=== PATIENT | male | born 1965 | race Caucasian/White ===

== ENCOUNTER 2017-11-13 19:55 | Emergency (ER) | payer OTHER ==
[2017-11-13 20:25] VITALS: BP 146/96
--- NOTE | 2017-11-13 20:47 | UC ---
Complaint Male HPI - HPI Summary HPI Summary: Patient states "held my urine too long and had an accident" he describes this as urinating on himself. He states that this occurred as he was trying to exit a store. He states that upon arriving home he noted blood and a clot inside his pain gets. He admits that at the time he felt like he couldn't hold his urine he was experiencing pain in both sides of his back that seemed to resolve with the incontinence. He states that since arriving here he passed a couple of clots while providing his urine sample. He also admits to "dripping blood from my penis". Patient denies any history of similar signs or symptoms and he denies any history of hematuria and renal stones as well as UTI. He does report that last evening he felt like his abdomen was bloated and that his lower abdomen feels a little bloated at this time. No prior issues of bruising or bleeding. Patient denies any blood thinners or aspirin use. - History of Current Complaint Chief Complaint: UCGU Stated Complaint: URINARY COMPLAINT Time Seen by Provider: 11/13/17 20:40 Hx Obtained From: Patient Onset/Duration: Sudden Onset Pain Intensity: 0 Associated Signs And Symptoms: Positive: Hematuria. Negative: Fever, Blood in Stool, Rectal Pain, Nausea, Vomiting(# Of Episodes =), Penile Swelling - Allergies/Home Medications Allergies/Adverse Reactions: Allergies Allergy/AdvReac Type Severity Reaction Status Date / Time No Known Allergies Allergy Verified 11/13/17 20:23 Home Medications: Home Medications Cholecalciferol TAB* [Vitamin D TAB*] 1,000 unit PO DAILY 11/13/17 [History Confirmed 11/13/17] PMH/Surg Hx/FS Hx/Imm Hx Cardiovascular History: Hypertension - Surgical History Surgical History: Yes Surgery Procedure, Year, and Place: KNEE ARTHROSCOPY- TEENAGER. NERVE BLOCK- BACK - Family History Known Family History: Positive: Hypertension, Respiratory Disease - Social History Occupation: Employed Full-time Lives: With Family Alcohol Use: Occasionally Substance Use Type: None Smoking Status (MU): Never Smoked Tobacco - Immunization History Vaccination Up to Date: Yes Review of Systems Constitutional: Negative Skin: Negative Eyes: Negative ENT: Negative Respiratory: Negative Cardiovascular: Negative Gastrointestinal: Negative Genitourinary: Hematuria Motor: Negative Neurovascular: Negative Musculoskeletal: Negative Neurological: Negative Psychological: Negative Is Patient Immunocompromised?: No All Other Systems Reviewed And Are Negative: Yes Physical Exam Triage Information Reviewed: Yes Appearance: Well-Appearing Vital Signs: Initial Vital Signs Temp 98.5 F 11/13/17 20:20 Pulse 81 11/13/17 20:20 Resp 17 11/13/17 20:20 BP 146/96 11/13/17 20:20 Pulse Ox 100 11/13/17 20:20 Eye Exam: Normal ENT: Positive: Normal ENT inspection Neck: Positive: Supple, Nontender, No Lymphadenopathy Respiratory: Positive: Lungs clear, Normal breath sounds Cardiovascular: Positive: RRR, No Murmur Abdomen Description: Positive: Nontender, No Organomegaly, Soft. Negative: CVA Tenderness (R), CVA Tenderness (L), Distended, Guarding Bowel Sounds: Positive: Present Male Genital Exam: Positive: Other - Strong femoral pulses no inguinal adenopathy. Testicles are down without swelling or tenderness. Inguinal canals are patent. A scant amount of blood is trickling from the urethral meatus at time of exam but no evidence of lesions or injury. Musculoskeletal: Positive: ROM Intact Neurological: Positive: Alert Psychological: Positive: Age Appropriate Behavior Skin Exam: Normal Complaint Male Course/Dx - Course Course Of Treatment: Patient's history is concerning in that he has spontaneous hematuria, incontinence and the passage of clots. Urine dip here was positive for blood only. He has no history of injury to account for this and it is not consistent with renal colic. On exam he has some scant active bleeding from his urethral meatus. The history may even imply that he was experiencing some urinary retention and perhaps he spontaneously drained once a clot gave way. This patient requires higher level of care to determine the source of his bleeding and passage of clots along with the incontinence. He agrees to emergency room transfer and will go directly to the [facility] from here. Report called to Jen abel at [facility]. advised of incontinence, hematuir and clots in urine and coming via private car. - Differential Dx/Diagnosis Provider Diagnoses: Incontinenece, hematuria with clots, bleeding from urethra Discharge - Sign-Out/Discharge Documenting (check all that apply): Discharge/Admit/Transfer - Discharge Plan Condition: Stable Disposition: TRANS HIGHER LVL OF CARE FAC Referrals: No Primary Care Phys,NOPCP [Primary Care Provider] - Additional Instructions: GO DIRECTLY TO THE [facility] FROM HERE DISCUSSED - Billing Disposition and Condition Condition: STABLE Disposition: Trans Higher Lvl of Care Fac
== END 2017-11-13 20:55 | disposition short-term general hospital (02) ==
LOC: UCCORT 19:55
DX: R32 Unspecified urinary incontinence (principal); N36.8 Other specified disorders of urethra; R31.9 Hematuria, unspecified; I10 Essential (primary) hypertension
CPT/HCPCS: 81003; 99212; G0463

== ENCOUNTER 2018-12-26 09:39 | Emergency (ER) | payer BC, OTHER ==
[2018-12-26 09:59] VITALS: BP 152/83
--- NOTE | 2018-12-26 10:30 | UC ---
Shoulder Pain HPI - HPI Summary HPI Summary: 53-year-old male who was working on a deck at home when he accidentally stepped in a hole and fell onto his outstretched palm injuring his right shoulder. When he stood up he felt like it was dislocated but then he moved his arm and he felt it pop back into place. Today he has some continued pain to the posterior right shoulder. He denies any neck pain and did not hit his head. - History of Current Complaint Chief Complaint: UCUpperExtremity Stated Complaint: RIGHT SHOULDER INJURY Time Seen by Provider: 12/26/18 10:00 Hx Obtained From: Patient Onset/Duration: Sudden Onset Timing: Constant Severity Initially: Moderate Severity Currently: Mild Pain Intensity: 4 Aggravating Factor(s): Abduction Alleviating Factor(s): Rest Associated Signs And Symptoms: Positive: Negative - Allergies/Home Medications Allergies/Adverse Reactions: Allergies Allergy/AdvReac Type Severity Reaction Status Date / Time No Known Allergies Allergy Verified 12/26/18 09:58 PMH/Surg Hx/FS Hx/Imm Hx Previously Healthy: Yes Cardiovascular History: Hypertension Respiratory History: Asthma - Surgical History Surgical History: Yes Surgery Procedure, Year, and Place: KNEE ARTHROSCOPY- TEENAGER. NERVE BLOCK- BACK - Family History Known Family History: Positive: Hypertension, Respiratory Disease - Social History Alcohol Use: Occasionally Substance Use Type: None Smoking Status (MU): Never Smoked Tobacco - Immunization History Vaccination Up to Date: Yes Review of Systems All Other Systems Reviewed And Are Negative: Yes Skin: Positive: Negative Respiratory: Positive: Negative Motor: Positive: Negative, Decreased ROM Musculoskeletal: Positive: Negative Neurological: Positive: Negative Is Patient Immunocompromised?: No Physical Exam Triage Information Reviewed: Yes Appearance: Well-Appearing, No Pain Distress, Well-Nourished Vital Signs: Initial Vital Signs Temp 97.9 F 12/26/18 09:56 Pulse 78 12/26/18 09:56 Resp 18 12/26/18 09:56 BP 152/83 12/26/18 09:56 Pulse Ox 97 12/26/18 09:56 Vital Signs Reviewed: Yes Neck: Positive: Supple, Nontender, No Lymphadenopathy Respiratory: Positive: Lungs clear, Normal breath sounds, No respiratory distress, No accessory muscle use Cardiovascular: Positive: RRR, No Murmur, Pulses Normal, Brisk Capillary Refill Musculoskeletal: Positive: Strength Intact, ROM Intact, Other: - Mild tenderness on palpation posterior right shoulder, no erythema, bruising, deformity or swelling is noted. The peripheral pulses neuro sensation and capillary refill. Good arm strength against resistance. Patient is able to lift his right arm laterally to 90 angle with minimal discomfort. Negative arm drop Neurological Exam: Normal Psychological Exam: Normal Skin Exam: Normal Shoulder Course/Dx - Course Course Of Treatment: Shoulder x-ray:FINDINGS: BONE DENSITY: Normal. BONES: There is no displaced fracture. JOINTS: There is mild osteoarthritis of the a.c. and glenohumeral joints. ALIGNMENT: There is no dislocation. SOFT TISSUES: Unremarkable. OTHER FINDINGS: None. IMPRESSION: OSTEOARTHRITIS. NO ACUTE OSSEOUS INJURY. IF SYMPTOMS PERSIST, RECOMMEND REPEAT IMAGING. - Differential Dx/Diagnosis Provider Diagnosis: Sprain of right shoulder Discharge - Sign-Out/Discharge Documenting (check all that apply): Patient Departure All imaging exams completed and their final reports reviewed: Yes - Discharge Plan Condition: Fair Disposition: HOME Patient Education Materials: Shoulder Sprain (ED) Referrals: Joe Feliciano MD [Primary Care Provider] - Additional Instructions: Apply ice to the sore area, Tylenol every 4 hours may alternate with Motrin every 8 hours for pain. Definite follow-up with the orthopedist if no improvement in 3 or 4 days. - Billing Disposition and Condition Condition: FAIR Disposition: Home
== END 2018-12-26 10:38 | disposition home or self-care (01) ==
LOC: UCCORT 09:39
DX: S43.401A Unspecified sprain of right shoulder joint, initial encounter (principal); W17.2XXA Fall into hole, initial encounter; Y93.89 Activity, other specified; Y92.007 Garden or yard of unspecified non-institutional (private) residence as the place of occurrence of the external cause; I10 Essential (primary) hypertension
CPT/HCPCS: 99211; G0463

== ENCOUNTER 2018-12-28 13:40 | Emergency (ER) | payer BC ==
[2018-12-28 14:21] VITALS: BP 139/93
[2018-12-28] MEDS ORDERED: Tetan/Diph/Pertus SYR(Tdap)* 0.5 ML SYR(BOOSTRIX) use SYR contains LATEX IM ONE (14:34)
--- NOTE | 2018-12-28 14:36 | UC ---
General HPI - HPI Summary HPI Summary: pt took down his old pool deck and accidentally stepped on a screw that was sticking up from one of the boards. it went through his L shoe into his foot. his cleaned it right after. he comes in for a tetanus shot. he denies FB sensation. he notes the site is sore. screw stayed in the board and came out whole. - History of Current Complaint Chief Complaint: UCWounds Stated Complaint: LEFT FOOT PUNCTURE WOUND Time Seen by Provider: 12/28/18 14:20 Hx Obtained From: Patient Onset/Duration: Sudden Onset Pain Intensity: 0 Aggravating: walking on it - Allergy/Home Medications Allergies/Adverse Reactions: Allergies Allergy/AdvReac Type Severity Reaction Status Date / Time No Known Allergies Allergy Verified 12/28/18 14:21 PMH/Surg Hx/FS Hx/Imm Hx Cardiovascular History: Hypertension - Surgical History Surgical History: Yes Surgery Procedure, Year, and Place: KNEE ARTHROSCOPY- TEENAGER. NERVE BLOCK- BACK. hernia-umbilical - Family History Known Family History: Positive: Hypertension, Respiratory Disease - Social History Lives: With Family Alcohol Use: Occasionally Substance Use Type: None Smoking Status (MU): Never Smoked Tobacco - Immunization History Most Recent Tetanus Shot: no idea Vaccination Up to Date: Yes Review of Systems All Other Systems Reviewed And Are Negative: No Constitutional: Negative: Fever, Chills Skin: Negative: Rash Musculoskeletal: Negative: Decreased ROM Neurological: Negative: Weakness, Paresthesia, Numbness Physical Exam Triage Information Reviewed: Yes Appearance: Well-Appearing Vital Signs: Initial Vital Signs Temp 98.1 F 12/28/18 14:15 Pulse 83 12/28/18 14:15 Resp 18 12/28/18 14:15 BP 139/93 12/28/18 14:15 Pulse Ox 99 12/28/18 14:15 Vital Signs Reviewed: Yes Cardiovascular: Positive: RRR Musculoskeletal: Positive: Other: - L foot= small PW just below the ball of foot on lateral aspect. no erythema or bleeding. no bony deformity or tenderness. foot has gross s/v/m funtion. Neurological: Positive: Alert Psychological: Positive: Age Appropriate Behavior Skin Exam: Normal Skin: Negative: Rashes Course/Dx - Course Course Of Treatment: pt declined xray citing no concern for FB. 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 pt advised of risk for infection from PW's and to have it rechecked immediately for any concerns/worsening. will tx with keflex in an effort to prevent skin infection; however, pt advised of risk for pseudomonas infection and that would require a quinolones antibiotic but the risk of side effects from that outweighs any benefit at this time. - Diagnoses Provider Diagnosis: Puncture wound of right foot Discharge - Sign-Out/Discharge Documenting (check all that apply): Patient Departure All imaging exams completed and their final reports reviewed: No Studies - Discharge Plan Condition: Stable Disposition: HOME Prescriptions: Cephalexin CAP* [Keflex CAP*] 500 mg PO TID 7 Days #21 cap Patient Education Materials: Puncture Wound (ED) Referrals: Joe Feliciano MD [Primary Care Provider] - 5 Days - Billing Disposition and Condition Condition: STABLE Disposition: Home - Attestation Statements Provider Attestation: I was available for consult. This patient was seen by the KARYN. The patient was not presented to, seen by, or examined by me. -Yuridia
== END 2018-12-28 14:48 | disposition home or self-care (01) ==
LOC: UCCORT 13:40
DX: S91.332A Puncture wound without foreign body, left foot, initial encounter (principal); W22.8XXA Striking against or struck by other objects, initial encounter; Y93.01 Activity, walking, marching and hiking; Y92.007 Garden or yard of unspecified non-institutional (private) residence as the place of occurrence of the external cause; I10 Essential (primary) hypertension
CPT/HCPCS: 90471; 90715; 99212; G0463